=== PATIENT | female | born 1960 | race Caucasian/White ===

== ENCOUNTER 2020-07-04 13:55 | Observation (INO) | payer BC ==
[2020-07-04] MEDS ORDERED: HYDROMORPHONE HCL 1 MG/ML INJ IV PRN (15:49)
[2020-07-04] MEDS ORDERED: NACHLORIDE 0.45% 1,000 ML IV SCH (16:00)
[2020-07-04] MEDS ORDERED: PNEUMOCOCCAL VACCINE 0.5 ML IMVAC ONE (16:00)
[2020-07-04] MEDS ORDERED: ONDANSETRON 4 MG (ODT) TAB PO PRN (16:00)
[2020-07-04] MEDS ORDERED: LOPERAMIDE HCL 2 MG CAPSULE PO PRN (16:00)
[2020-07-04] MEDS ORDERED: INFLUENZA VACCINE (for 3y+) 0.5 ML DOSE IMVAC ONE (16:00)
[2020-07-04] MEDS ORDERED: DIPHENHYDRAMINE 25 MG TAB/CAP PO PRN (16:00)
[2020-07-04] MEDS ORDERED: ACETAMINOPHEN 325 MG TABLET PO PRN (16:00)
[2020-07-04] MEDS ORDERED: ONDANSETRON 4 MG/2 ML VIAL IV PRN (16:00)
[2020-07-04] MEDS ORDERED: POLYETHYL GLY 3350 17 GM/DOSE PO PRN (16:00)
[2020-07-04 16:47] VITALS: BMI 25.5
[2020-07-04] MEDS ORDERED: CEFOXITIN/SWI 1gm 1 GM/10 ML SYR IVP SCH (17:00)
[2020-07-04 17:22] LABS: Absolute Lymphocytes (CBC) 1.9 K/uL (0.7-4.9); Basophils % 0.2 % (0-1.3); Hematocrit 38.8 % (36.0-45.0); Lymphocytes % 16.7 % (15.3-44.8); RBC Red Blood Cell Count 4.38 M/uL (3.86-4.86)
[2020-07-04 17:25] LABS: Protime INR 1.12
[2020-07-04] MEDS: METRONIDAZOLE 500mg IVPB 500 MG/100 ML BAG IV SCH (17:46)
[2020-07-04 17:51] LABS: ALT/SGPT 37 U/L (12-78); AST/SGOT 21 U/L (15-37); Albumin 3.5 g/dL (3.4-5.0); Alkaline Phosphatase 73 U/L (45-117); Amylase 36 U/L (25-115); BUN Blood Urea Nitrogen 10 mg/dL (7-18); Bicarbonate 28 mmol/L (21-32); Bilirubin Direct 0.3 mg/dL (0-0.2); Bilirubin Total 0.8 mg/dL (0.2-1.0); Glucose Level 158 mg/dL (74-106); Lipase 92 U/L (73-393); Magnesium 2.4 mg/dL (1.8-2.4); Phosphorus 2.8 mg/dL (2.5-4.9); Potassium 3.1 mmol/L (3.5-5.1); Protein, Total 7.2 g/dL (6.4-8.2); Sodium Level 140 mmol/L (136-145)
[2020-07-04 18:53] LABS: Urine Appearance CLEAR (Clear); Urine Bilirubin NEGATIVE (Negataive); Urine Blood 2+ (Negative); Urine Color YELLOW (Yellow); Urine Glucose 1+ (Negative); Urine Protein NEGATIVE (Negative); Urine Urobilinogen 0.2 mg/dL (0.2-1.0)
[2020-07-04 18:54] LABS: Urine Microscopic Reflex ORDER UMIC
--- NOTE | 2020-07-04 19:16 | RAD REPORT ---
EXAM DESCRIPTION: CT - Abdomen Pelvis W Contrast - 07/04/2020 6:42 pm CLINICAL HISTORY: Abdominal pain COMPARISON: none. TECHNIQUE: Computed axial tomography of the abdomen pelvis was obtained. 100 cc Isovue-300 was admin istered intravenously. Oral contrast was given All CT scans are performed using dose optimization technique as appropriate and may include automated exposure control or mA/KV adjustment according to patient size. FINDINGS: Small hepatic cyst. 1 centimeter low-density lesion within spleen contains calcification. Pancreas, adrenal and left kidney appear unremarkable. Small right renal cyst. The wall of the sigmoid colon is thickened. Diverticula stem from the colon. Moderate stranding withi n the adjacent fat. No free air. No abscess Small umbilical hernia. Appendix is upper limits normal caliber. Cecum lies above the level of iliac crest midline IMPRESSION: Moderate sigmoid diverticulitis 1 centimeter splenic lesion likely benign. Follow-up ultrasound 3 months recommended to assess stabil ity
[2020-07-04 19:17] LABS: Urine Bacteria NONE SEEN /HPF (<20)
--- NOTE | 2020-07-04 19:29 | RAD REPORT ---
EXAM DESCRIPTION: Karri Ann (2 Views)07/04/2020 6:50 pm CLINICAL HISTORY: Abdominal pain COMPARISON: None FINDINGS: The lungs appear clear of acute infiltrate. The heart is normal size IMPRESSION: No acute abnormalities displayed
[2020-07-04] MEDS: CEFOXITIN/SWI 1gm 1 GM/10 ML SYR IVP SCH (20:06)
[2020-07-04] MEDS ORDERED: POTASSIUM CL SA 10 MEQ TAB PO ONE (21:00)
[2020-07-04] MEDS ORDERED: KCL 20 MEQ/100 mL IVPB 20 MEQ/100 ML BAG IV SCH (21:00)
[2020-07-05] MEDS: CEFOXITIN/SWI 1gm 1 GM/10 ML SYR IVP SCH (00:57)
[2020-07-05] MEDS: METRONIDAZOLE 500mg IVPB 500 MG/100 ML BAG IV SCH (00:57)
[2020-07-05 04:15] LABS: Absolute Lymphocytes (CBC) 2.1 K/uL (0.7-4.9); Basophils % 0.3 % (0-1.3); Hematocrit 38.1 % (36.0-45.0); Lymphocytes % 18.2 % (15.3-44.8); MPV 8.2 fL (7.6-11.3); RBC Red Blood Cell Count 4.28 M/uL (3.86-4.86)
[2020-07-05 04:31] LABS: BUN Blood Urea Nitrogen 10 mg/dL (7-18); Bicarbonate 27 mmol/L (21-32); Glucose Level 102 mg/dL (74-106); Magnesium 2.6 mg/dL (1.8-2.4); Potassium 3.7 mmol/L (3.5-5.1); Sodium Level 140 mmol/L (136-145)
[2020-07-05] MEDS: ENOXAPARIN 40 MG/0.4 ML SQ SCH ×2 (09:00)
[2020-07-05] MEDS ORDERED: POTASSIUM CL SA 10 MEQ TAB PO ONE (09:00)
[2020-07-05] MEDS ORDERED: CIPROFLOXACIN HCL 500 MG TAB PO SCH (09:00)
[2020-07-05] MEDS: metroNIDAZOLE 500 MG TABLET PO SCH ×2 (09:45→13:34)
[2020-07-05 10:52] VITALS: O2SAT 96
[2020-07-05 12:54] VITALS: BP 108/69; TEMP 98.5
--- NOTE | 2020-07-05 20:14 | P.DS ---
Admission Date: 07/04/20 Discharge Date: 07/05/20 Disposition: AL HOME/HOME HEALTH CARE Discharge Condition: GOOD Brief History of Present Illness: HIRA IS DOING GOOD. SHE HAS ACUTE SIGMOID DIVERTICULITIS. SHE IS DISCHARGE IN STABLE CONDITION AFTER SHE TRIED ORAL ANTIBIOTICS AND TOLERATED WELL. Vital Signs/Physical Exam: Temp Pulse Resp BP Pulse Ox 98.5 F 77 16 108/69 97 07/05/20 12:00 07/05/20 12:00 07/05/20 12:00 07/05/20 12:00 07/05/20 12:00 Laboratory Data at Discharge: WBC 11.40 K/uL (4.3-10.9) H 07/05/20 03:21 Hgb 12.7 g/dL (12.0-15.0) 07/05/20 03:21 Hct 38.1 % (36.0-45.0) 07/05/20 03:21 Plt Count 289 K/uL (152-406) 07/05/20 03:21 PT 12.9 SECONDS (9.5-12.5) H 07/04/20 16:51 INR 1.12 07/04/20 16:51 APTT 25.9 SECONDS (24.3-36.9) 07/04/20 16:51 Sodium 140 mmol/L (136-145) 07/05/20 03:21 Potassium 3.7 mmol/L (3.5-5.1) 07/05/20 03:21 BUN 10 mg/dL (7-18) 07/05/20 03:21 Creatinine 0.50 mg/dL (0.55-1.3) L 07/05/20 03:21 Glucose 102 mg/dL (74-106) 07/05/20 03:21 Phosphorus 2.8 mg/dL (2.5-4.9) 07/04/20 16:51 Magnesium 2.6 mg/dL (1.8-2.4) H 07/05/20 03:21 Total Bilirubin 0.8 mg/dL (0.2-1.0) 07/04/20 16:51 AST 21 U/L (15-37) 07/04/20 16:51 ALT 37 U/L (12-78) 07/04/20 16:51 Alkaline Phosphatase 73 U/L (45-117) 07/04/20 16:51 Amylase 36 U/L (25-115) 07/04/20 16:51 Lipase 92 U/L (73-393) 07/04/20 16:51 Home Medications: Estradiol/Norethindrone Acet [Combipatch 0.05-0.14 mg Ptch] 1 patch TOP MO,FR 07/04/20 hydroCHLOROthiazide [Hydrochlorothiazide] 25 mg PO DAILY 07/04/20 Ciprofloxacin HCl [Cipro 500 MG Tablet] 500 mg PO BID 14 Days #28 tab 07/05/20 metroNIDAZOLE [Flagyl] 500 mg PO Q8H 10 Days #30 tablet 07/05/20 New Medications: Ciprofloxacin HCl [Cipro 500 MG Tablet] 500 mg PO BID 14 Days #28 tab metroNIDAZOLE [Flagyl] 500 mg PO Q8H 10 Days #30 tablet Followup: Asa Dover MD [ACTIVE - CAN ADMIT] - (follow up in 1 week call to schedule appointment)
== END 2020-07-05 15:32 | disposition home or self-care (01) ==
LOC: 4TH 16:06
PROVIDERS: ADMIT Internal Medicine; ATTEND Internal Medicine
DX: K57.32 Diverticulitis of large intestine without perforation or abscess without bleeding (principal); Z20.822 Contact with and (suspected) exposure to COVID-19
CPT/HCPCS: 87088; 85025 ×2; 87086; 80048 ×2; 36415; 82150; 83735 ×2; 84100; 85610; 80076; 85730; 84443; 82607; 83690; 82306; 74177; 71046; U0003; Q9967; 81003; 81015; G0378; G0379; J1650